=== PATIENT | male | born 1950 | race Caucasian/White ===

== ENCOUNTER 2019-05-14 21:07 | Emergency (ER) | payer MEDICARE, MEDICAID ==
[~2019-05-14] VITALS: Ht 182.9 cm; Wt 59.1 kg
[2019-05-14 21:11] VITALS: Ht 182.9 cm; Wt 59.1 kg
[2019-05-14] MEDS ORDERED: ASPIRIN 325 MG TAB PO STA (21:47)
[2019-05-15] MEDS ORDERED: NACL 0.9% 3 ML SYG IV SCH (00:30)
[2019-05-15] MEDS ORDERED: BISACODYL (EC) 5 MG TAB PO PRN (00:30)
[2019-05-15] MEDS ORDERED: NITROGLYCERIN (SL) 0.4 MG TAB SL PRN (00:30)
[2019-05-15] MEDS ORDERED: ACETAMINOPHEN 325 MG TAB PO PRN ×2 (00:30)
[2019-05-15] MEDS ORDERED: ONDANSETRON 4 MG INJ IV PRN ×2 (00:30)
[2019-05-15] MEDS ORDERED: DOCUSATE SODIUM 100 MG CAP PO PRN (00:30)
[2019-05-15 03:49] VITALS: BP 116/65; PULSE 76; RESP 16
== END 2019-05-15 04:31 | disposition left against medical advice (07) ==
LOC: E/R 21:07 → CANBEDREQ 05-16 14:31
DX: R07.9 Chest pain, unspecified (principal); R40.2142 Coma scale, eyes open, spontaneous, at arrival to emergency department; R40.2362 Coma scale, best motor response, obeys commands, at arrival to emergency department; R40.2252 Coma scale, best verbal response, oriented, at arrival to emergency department; I25.10 Atherosclerotic heart disease of native coronary artery without angina pectoris; I25.2 Old myocardial infarction; F17.210 Nicotine dependence, cigarettes, uncomplicated; Z85.118 Personal history of other malignant neoplasm of bronchus and lung
CPT/HCPCS: 36415; 71045; 80048; 82550; 82553; 84484; 85025; 93005